=== PATIENT | male | born 1985 | race Two or more races ===

== ENCOUNTER 2021-10-19 13:38 | Observation (INO) ==
[2021-10-19 14:56] LABS: Basophils # (auto) 0.05 K/uL (0-0.2); Basophils % (auto) 0.7 %; Eosinophils # (auto) 0.29 K/uL (0-0.50); Eosinophils % (auto) 4.2 %; Hematocrit (blood only) 41.9 % (40.1-51.0); Hemoglobin 14.6 g/dl (14.0-18.0); Immature Granulocytes # (auto) 0.03 K/uL (0.00-0.02); Immature Granulocytes % (auto) 0.4 %; Lymphocytes # (auto) 1.67 K/uL (1.2-3.4); Mean Corpuscular Hemoglobin 30.3 pg (25.0-34.0); Mean Corpuscular Hgb Conc 34.8 g/dL (32.0-36.0); Mean Corpuscular Volume 86.9 fL (80.0-100.0); Mean Platelet Volume 10.9 fL (9.4-12.4); Monocytes # (auto) 0.66 K/uL (0.24-0.82); Monocytes % (auto) 9.5 %; Neutrophils # (auto) 4.25 K/uL (1.4-6.5); Neutrophils % (auto) 61.2 %; Platelet Count 281 K/uL (130-400); RDW Coefficient of Variation 12.7 % (11.5-14.5); RDW Standard Deviation 40.4 fL (36.4-46.3); Red Blood Count 4.82 M/uL (4.63-6.08); White Blood Count 6.95 K/ul (4.8-10.8)
[2021-10-19 15:15] LABS: Albumin Globulin Ratio 1.5 (0.9-2); Albumin Level 4.8 gm/dl (3.4-5.0); BUN Creatinine Ratio 10.6 (10-20); Bilirubin,Total 0.4 mg/dl (0.2-1.0); Calcium 10.1 mg/dl (8.5-10.1); Creatinine Clr Calc Pharmacy 134.4 ml/min; Est GFR (African American) 131.8 ml/min; Est GFR (Non-African American) 113.7 ml/min; Globulin 3.2 gm/dl (2.5-4.0); Potassium 3.9 mmol/L (3.5-5.1)
[2021-10-19] MEDS ORDERED: diphenhydrAMINE 50 MG/ML VIAL IV STA (15:35)
[2021-10-19] MEDS ORDERED: SODIUM CHLORIDE 0.9% 1000ML 1,000 ML IV ONE (15:35)
[2021-10-19] MEDS ORDERED: ACETAMINOPHEN 1,000 MG/100 ML VIAL IV STA (15:35)
[2021-10-19] MEDS ORDERED: ONDANSETRON INJ 2 MG/ML 2 ML VIAL IV STA (15:35)
[2021-10-19] MEDS ORDERED: OPTIRAY 300 100mL IV ONE (16:09)
[2021-10-19 16:52] LABS: Appearance Urine Clear (Clear); Bilirubin Urine Negative (Negative); Blood Urine Negative (Negative); Color Urine Dark Yellow; Glucose Urine UA Negative (Negative); Ketones Urine Negative (Negative); Leukocyte Esterase Urine Negative (Negative); Nitrite Urine Negative (Negative); Protein Urine Negative (Negative); Specific Gravity Urine > 1.045 (1.000-1.030); Urobilinogen Urine Negative (Negative); pH Urine 5.5 (4.5-7.5)
--- NOTE | 2021-10-19 16:57 | CT Scan Report ---
ABDOMEN AND PELVIS CT WITH IV CONTRAST CT DOSE: 398.62 mGy.cm HISTORY: Acute right lower quadrant abdominal pain RLQ pain TECHNIQUE: Multiaxial CT images of the abdomen and pelvis were performed following the IV administrat ion of 93 cc of Optiray, A dose lowering technique was utilized adhering to the principles of ALARA. COMPARISON STUDY: CT abdomen and pelvis 12/03/2019 FINDINGS: Clear lung bases. No pneumatosis or pneumoperitoneum. The imaged inferior cardiac chambers are unremarkable. Unenhanced spleen, pancreas, adrenal glands, liver and gallbladder appear unremarka ble. Kidneys, and ureters are unremarkable. No renal or ureteral calculi or obstructive uropathy. Par tial distention of the urinary bladder with mild wall thickening. Unremarkable prostate. Aorta and IV C are within normal limits. No adenopathy. No bowel obstruction. The base and mid aspect of the appendix is dilated measuring up to 1.1 cm with wall thickening and mucosal hyperemia. Periappendiceal inflammation with trace free fluid. Soft tissu es are unremarkable. Scattered subcentimeter sclerotic foci of the pelvis and proximal femora are sug gestive of probable bone islands. Bones appear intact. IMPRESSION: 1. Acute appendicitis. No pneumoperitoneum or abscess. 2. No bowel obstruction. ACT 112: Negative or not required by law. The above report was generated using voice recognition software. It may contain grammatical, syntax o r spelling errors. Electronically signed by: Sea Fuentes M.D. 10/19/2021 4:56 PM
[2021-10-19] MEDS ORDERED: cefOXitin 2,000 MG/60 ML BAG IV STA (17:01)
--- NOTE | 2021-10-19 17:07 | Emergency Department Note ---
Impression & Plan Acute appendicitis, Acute right lower quadrant pain, Nausea ED Provider Note NAME: ADRYAN LEVINE AGE: 36 SEX: M ARRIVES VIA: Walk-In INFORMANT: Patient ED PROVIDER(S): Anthony Strickland MD CHIEF COMPLAINT: Appendicitis PLAN: Disposition: Admit MEDICAL DECISION MAKING: The patient is a pleasant 36-year-old gentleman with a past medical history of IBS who presents to the emergency department with symptoms of nausea and abdominal pain beginning on with evolution of right lower quadrant abdominal pain over the past 24-48 hours. He reports he does have frequent symptoms related to his IBS but this feels different and that is more severe. He also notes he had a fever on Tuesday. He denies any cough or congestion or diarrhea. He denies any known COVID-19 exposures. On arrival the patient is no acute distress, afebrile stable vital signs. He appears clinically dry. He has mild point tenderness in the right lower quadrant over McBurney's point. There is no guarding or rebound WBC, H/H and platelets within normal limits. Chemistry without metabolic acidosis. Electrolytes and LFTs unremarkable. Lipase within normal limits. UA without convincing evidence of infection. COVID-19 RNA, DANIA test was negative. CT of the abdomen pelvis was performed and demonstrates evidence of acute appendicitis with 1.1 cm dilated appendix with periappendiceal inflammation. Cefoxitin ordered. Case was discussed with general surgery on-call, Dr. Wilde, who evaluate the patient for admission/OR. Triage Nursing notes reviewed and agree them. Prior medical records reviewed Vital Signs: reviewed and remarkable for no significant abnormalities Differential diagnosis: Appendicitis, testicular torsion, infections, diverticulitis, UTI, obstruction, mesenteric ischemia, aortic pathology, inflammatory bowel disease, renal colic, PUD, pancreatitis, biliary pathology, hernia, volvulus, constipation, as well as other pathologies. ER treatment provided: See below. Diagnostics interpreted by me: Cardiac Monitoring: An order for continuous cardiac monitoring was placed and demonstrated NSR, 81 bpm, no ectopy. Laboratory studies: See below Imaging studies: See below Consultation(s): General surgery on-call, Dr. Wilde HPI: The patient is a pleasant 36-year-old gentleman with a past medical history of IBS who presents to the emergency department with symptoms of nausea and abdo sultana pain beginning on with evolution of right lower quadrant abdominal pain over the past 24-48 hours. He reports he does have frequent symptoms related to his IBS but this feels different and that is more severe. He also notes he had a fever on Raghu. He denies any cough or congestion or diarrhea. He denies any known COVID-19 exposures. ROS: See above HPI for pertinent positives & negatives. A total of 10 systems reviewed and were otherwise negative. VITALS:See Below PHYSICAL EXAMINATION: GENERAL: Awake, alert, fatigued-appearing, in no distress HENT: Normocephalic, atraumatic. Oropharynx with dry mucous membranes and otherwise unremarkable. EYES: Normal conjunctiva. Sclera non-icteric. NECK: Supple. No nuchal rigidity. FROM. No JVD. RESPIRATORY: Clear to auscultation. CARDIAC: Regular rate, normal rhythm. Extremities warm and well perfused. Pulses equal. ABDOMEN: Soft, non-distended. Mild RLQ tenderness to palpation. No rebound or guarding. No masses. RECTAL: Deferred. MUSCULOSKELETAL: Chest examination reveals no tenderness. The back is symmetrical on inspection without obvious abnormality. There is no CVA tenderness to palpation. No joint edema. LOWER EXTREMITIES: Calves are equal size bilaterally and non-tender. No edema. No discoloration. NEURO: Normal sensorium. No sensory or motor deficits noted. SKIN: No rash or jaundice noted. Anthony Strickland MD Past Med/Surg History Medical History Abdominal pressure Anxiety Asthma no inhaler use Depression History of concussion multiple sports related concussions in his 20s - reports residual memory issues History of migraine IBS (irritable bowel syndrome) Joint pain BL SHOULDERS PTSD (post-traumatic stress disorder) Smoker Surgical History No history of previous surgery Family History Father Family history of diabetes mellitus Grandmother (Paternal) Family history of diabetes mellitus Other No family history of adverse response to anesthesia Denies family history of Crohn's disease Colorectal cancer Ulcerative colitis Social History Smoking Status: Current every day smoker Second Hand Exposure: No; Do You Dip or Chew Tobacco: No; Tobacco Cessation Education Requested by Patient: No Hx Alcohol Use: Yes Alcohol type: beer Hx Substance Use: No Preferred Language: Hebrew Communication Ability: Effective Visual Impairment: No Limitations Hearing Ability: Normal 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 Required: No Beliefs That Will Affect Care: None marital status: single Current Living Situation: Family Current Living Situation Comment: [facility] W/ [place]NE current occupational status: employed current occupation: [employer] Other Information That Helps Us Care for You: No Feels Safe at Home: Yes Safety Concerns: Feels Safe At This Time Childhood Exposure to Second-Hand Smoke: Yes caffeine: Yes during the past year weight has: remained stable Physical Activity Frequency: Daily Seatbelt Use: always Sunscreen Use: No Assistive Devices: Glasses Allergies Allergies Allergy/AdvReac Type Severity Reaction Status Date / Time No Known Allergies Allergy Verified 01/25/20 09:40 Home Meds Home Medications Medication Instructions Recorded Confirmed sertraline 100 mg tablet (Zoloft) 150 mg PO QAM 01/23/19 01/25/20 bupropion HCl 100 mg tablet,12 hr 100 mg PO QAM 05/30/19 01/25/20 sustained-release (Wellbutrin SR) Previous Rx's Medication Instructions Recorded linaclotide 145 mcg capsule 145 mcg PO DAILY #30 caps 11/16/19 (Linzess) Results & Data (ED) Vital Signs Vital Signs - 24 hr 10/19/21 13:46 10/19/21 15:27 10/19/21 17:14 Temperature 36.3 C L Temperature Source Temporal Artery Scan Pulse Rate 93 H Pulse Rate [Right Finger] 77 78 Pulse Rhythm Regular Pulse Strength Normal Respiratory Rate 20 16 18 Respiratory Effort / Characteristics Non-Labored Spontaneous Respiratory Depth Normal Respiratory Pattern Regular Blood Pressure 137/93 Blood Pressure [Right Arm] 129/93 138/96 Blood Pressure Mean 107 Blood Pressure Mean [Right Arm] 105 110 Blood Pressure Position Sitting Pulse Oximetry 97 98 100 Oxygen Delivery Method Room Air Room Air Sepsis Recent Fever Within 48 Hours No Sepsis New/Unexplained Change in Mental Status No Sepsis Action Taken by Nursing No Action Required 10/19/21 18:21 Temperature 36.6 C Temperature Source Oral Pulse Rate Pulse Rate [Right Finger] 79 Pulse Rhythm Pulse Strength Respiratory Rate 16 Respiratory Effort / Characteristics Respiratory Depth Respiratory Pattern Blood Pressure Blood Pressure [Right Arm] 121/84 Blood Pressure Mean Blood Pressure Mean [Right Arm] 96 Blood Pressure Position Pulse Oximetry 99 Oxygen Delivery Method Room Air Sepsis Recent Fever Within 48 Hours Sepsis New/Unexplained Change in Mental Status Sepsis Action Taken by Nursing Laboratory Data Attestation: I reviewed the patient's lab results. Result diagrams: 10/19/21 14:40 10/19/21 14:40 Lab Results 10/19/21 10/19/21 10/19/21 Range/Units 14:40 14:40 15:38 WBC 6.95 (4.8-10.8) K/ul RBC 4.82 (4.63-6.08) M/uL Hgb 14.6 (14.0-18.0) g/dl Hct 41.9 (40.1-51.0) % MCV 86.9 (80.0-100.0) fL MCH 30.3 (25.0-34.0) pg MCHC 34.8 (32.0-36.0) g/dL RDW Std Deviation 40.4 (36.4-46.3) fL RDW Coeff of Holly 12.7 (11.5-14.5) % Plt Count 281 (130-400) K/uL MPV 10.9 (9.4-12.4) fL Immature Gran % (Auto) 0.4 % Neut % (Auto) 61.2 % Lymph % (Auto) 24.0 % Dewitt % (Auto) 9.5 % Eos % (Auto) 4.2 % Baso % (Auto) 0.7 % Neut # (Auto) 4.25 (1.4-6.5) K/uL Lymph # (Auto) 1.67 (1.2-3.4) K/uL [place] # (Auto) 0.66 (0.24-0.82) K/uL Eos # (Auto) 0.29 (0-0.50) K/uL Baso # (Auto) 0.05 (0-0.2) K/uL Immature Gran # (Auto) 0.03 H (0.00-0.02) K/uL Sodium 137 (136-145) mmol/L Potassium 3.9 (3.5-5.1) mmol/L Chloride 102 (98-107) mmol/L Carbon Dioxide 30 (21-32) mmol/L Anion Gap 5 (3-11) BUN 9 (6-23) mg/dl Creatinine 0.85 (0.6-1.4) mg/dl Est Cr Clr Drug Dosing 134.4 ml/min Est GFR ( Amer) 131.8 ml/min Est GFR (Non-Af Amer) 113.7 ml/min BUN/Creatinine Ratio 10.6 (10-20) Glucose 90 (70-99(Fasting)) mg/dl Calcium 10.1 (8.5-10.1) mg/dl Total Bilirubin 0.4 (0.2-1.0) mg/dl AST 20 (13-39) U/L ALT 38 (7-52) U/L Alkaline Phosphatase 60 (34-104) U/L Total Protein 8.0 (6.0-8.3) gm/dl Albumin 4.8 (3.4-5.0) gm/dl Globulin 3.2 (2.5-4.0) gm/dl Albumin/Globulin Ratio 1.5 (0.9-2) Lipase 24 (11-82) U/L Urine Color Urine Appearance (Clear) Urine pH (4.5-7.5) Ur Specific [place] (1.000-1.030) Urine Protein (Negative) Urine Glucose (UA) (Negative) Urine Ketones (Negative) Urine Blood (Negative) Urine Nitrite (Negative) Urine Bilirubin (Negative) Urine Urobilinogen (Negative) Ur Leukocyte Esterase (Negative) SARS-CoV-2, RNA, NAAT NEGATIVE (NEGATIVE) 10/19/21 Range/Units 16:27 WBC (4.8-10.8) K/ul RBC (4.63-6.08) M/uL Hgb (14.0-18.0) g/dl Hct (40.1-51.0) % MCV (80.0-100.0) fL MCH (25.0-34.0) pg MCHC (32.0-36.0) g/dL RDW Std Deviation (36.4-46.3) fL RDW Coeff of Holly (11.5-14.5) % Plt Count (130-400) K/uL MPV (9.4-12.4) fL Immature Gran % (Auto) % Neut % (Auto) % Lymph % (Auto) % [place] % (Auto) % Eos % (Auto) % Baso % (Auto) % Neut # (Auto) (1.4-6.5) K/uL Lymph # (Auto) (1.2-3.4) K/uL [place] # (Auto) (0.24-0.82) K/uL Eos # (Auto) (0-0.50) K/uL Baso # (Auto) (0-0.2) K/uL Immature Gran # (Auto) (0.00-0.02) K/uL Sodium (136-145) mmol/L Potassium (3.5-5.1) mmol/L Chloride (98-107) mmol/L Carbon Dioxide (21-32) mmol/L Anion Gap (3-11) BUN (6-23) mg/dl Creatinine (0.6-1.4) mg/dl Est Cr Clr Drug Dosing ml/min Est GFR ( Amer) ml/min Est GFR (Non-Af Amer) ml/min BUN/Creatinine Ratio (10-20) Glucose (70-99(Fasting)) mg/dl Calcium (8.5-10.1) mg/dl Total Bilirubin (0.2-1.0) mg/dl AST (13-39) U/L ALT (7-52) U/L Alkaline Phosphatase (34-104) U/L Total Protein (6.0-8.3) gm/dl Albumin (3.4-5.0) gm/dl Globulin (2.5-4.0) gm/dl Albumin/Globulin Ratio (0.9-2) Lipase (11-82) U/L Urine Color Dark Yellow Urine Appearance Clear (Clear) Urine pH 5.5 (4.5-7.5) Ur Specific [place] > 1.045 H (1.000-1.030) Urine Protein Negative (Negative) Urine Glucose (UA) Negative (Negative) Urine Ketones Negative (Negative) Urine Blood Negative (Negative) Urine Nitrite Negative (Negative) Urine Bilirubin Negative (Negative) Urine Urobilinogen Negative (Negative) Ur Leukocyte Esterase Negative (Negative) SARS-CoV-2, RNA, NAAT (NEGATIVE) Administered Medications Hydromorphone HCl (Hydromorphone Inj 0.5 Mg/0.5 Ml Syr) 0.5 mg IV Q6H PRN PRN Reason: Pain Stop: 11/02/21 20:38 Last Admin: 10/19/21 21:42 Dose: 0.5 mg Documented By: Lactated Ringer's (Lr) 1,000 mls @ 80 mls/hr IV .[id number] ISI Stop: 11/18/21 20:38 Last Admin: 10/19/21 20:59 Dose: 80 mls/hr Documented By: Discontinued Medications Bacitracin (Bacitracin Oint 15 Gm Tube) Confirm Administered Dose 45 appln .ROUTE .STK-MED ONE Stop: 10/19/21 17:53 Last Admin: 10/19/21 19:21 Dose: 45 appln Documented By: NBA Bupivacaine HCl (Bupivacaine 0.5 % 5 Mg/1 Ml Mpf 30ml Vial) Confirm Administered Dose 30 ml .ROUTE .STK-MED ONE Stop: 10/19/21 17:53 Last Admin: 10/19/21 19:22 Dose: 6 ml Documented By: NBA Diphenhydramine HCl (Diphenhydramine 50 Mg/Ml Vial) 25 mg IV NOW STA Stop: 10/19/21 15:36 Last Admin: 10/19/21 15:47 Dose: Not Given Documented By: JENNIFER Fentanyl Citrate (Fentanyl Citrate 100 Mcg/2 Ml Vial) 25 mcg IV Q5M PRN PRN Reason: PACU Use Only-Pain Stop: 10/20/21 02:34 Last Admin: 10/19/21 20:04 Dose: 25 mcg Documented By: Admin: 10/19/21 19:59 Dose: 25 mcg Documented By: Admin: 10/19/21 19:54 Dose: 25 mcg Documented By: Admin: 10/19/21 19:49 Dose: 25 mcg Documented By: YADIEL Fentanyl Citrate (Fentanyl Citrate 100 Mcg/2 Ml Vial) Confirm Administered Dose 100 mcg .ROUTE .STK-MED ONE Stop: 10/19/21 19:48 Last Admin: 10/19/21 20:52 Dose: Not Given Documented By: Sodium Chloride (Nss 1000ml) 1,000 mls @ 999 mls/hr IV .Q1H1M ONE Stop: 10/19/21 16:35 Last Infusion: 10/19/21 16:44 Dose: 0 mls/hr Documented By: Admin: 10/19/21 15:43 Dose: 999 mls/hr Documented By: JENNIFER Acetaminophen (Ofirmev) 1,000 mg in 100 mls @ 400 mls/hr IV NOW STA Stop: 10/19/21 15:49 Last Infusion: 10/19/21 15:58 Dose: 0 mls/hr Documented By: Admin: 10/19/21 15:41 Dose: 400 mls/hr Documented By: JENNIFER Cefoxitin Sodium (Mefoxin) 2,000 mg in 60 mls @ 100 mls/hr IV NOW STA Stop: 10/19/21 17:36 Last Infusion: 10/19/21 17:47 Dose: 0 mls/hr Documented By: Admin: 10/19/21 17:11 Dose: 100 mls/hr Documented By: JENNIFER Piperacillin Sod/Tazobactam (Sod 3.375 gm/ Dextrose) 115 mls @ 230 mls/hr IV NOW ONE; Protocol Stop: 10/19/21 21:29 Last Infusion: 10/19/21 22:36 Dose: 0 mls/hr Documented By: Admin: 10/19/21 21:59 Dose: 230 mls/hr Documented By: AB Ioversol (Optiray 300 100ml) 93 ml IV ONCE ONE Stop: 10/19/21 16:10 Last Admin: 10/19/21 16:10 Dose: 93 ml Documented By: RK Lidocaine HCl (Lidocaine 1% Local 20 Ml Vial) Confirm Administered Dose 20 ml .ROUTE .STK-MED ONE Stop: 10/19/21 17:53 Last Admin: 10/19/21 19:22 Dose: 6 ml Documented By: NBA Ondansetron HCl (Ondansetron Inj 2 Mg/Ml 2 Ml Vial) 4 mg IV NOW STA Stop: 10/19/21 15:36 Last Admin: 10/19/21 15:45 Dose: 4 mg Documented By: JENNIFER Imaging Data Radiologist's Impression: Abdomen/Pelvis CT 10/19/21 15:[address] WITH IV CONTRAST CT DOSE: 398.62 mGy.cm HISTORY: Acute right lower quadrant abdominal pain RLQ pain TECHNIQUE: Multiaxial CT images of the abdomen and pelvis were performed following the IV administration of 93 cc of Optiray, A dose lowering technique was utilized adhering to the principles of ALARA. COMPARISON STUDY: CT abdomen and pelvis 12/03/2019 FINDINGS: Clear lung bases. No pneumatosis or pneumoperitoneum. The imaged inferior cardiac chambers are unremarkable. Unenhanced spleen, pancreas, adrenal glands, liver and gallbladder appear unremarkable. Kidneys, and ureters are unr emarkable. No renal or ureteral calculi or obstructive uropathy. Partial distention of the urinary bladder with mild wall thickening. Unremarkable prostate. Aorta and IVC are within normal limits. No adenopathy. No bowel obstruction. The base and mid aspect of the appendix is dilated measuring up to 1.1 cm with wall thickening and mucosal hyperemia. Periappendiceal inflammation with trace free fluid. Soft tissues are unremarkable. Scattered subcentimeter sclerotic foci of the pelvis and proximal femora are suggestive of probable bone islands. Bones appear intact. IMPRESSION: 1. Acute appendicitis. No pneumoperitoneum or abscess. 2. No bowel obstruction. ACT 112: Negative or not required by law. The above report was generated using voice recognition software. It may contain grammatical, syntax or spelling errors. Electronically signed by: Sea Fuentes M.D. 10/19/2021 4:56 PM Discharge Plan Visit Data Chief Complaint: Abdominal Pain Stated Complaint: ABDOMINAL PAIN ED Provider: Anthony Strickland Discharge Problem: Acute appendicitis, Acute right lower quadrant pain, Nausea Patient Disposition: Admitted As Inpatient Discharge Instructions Interventions: ED Discharge Assessment Last Done: 10/19/21 18:13
--- NOTE | 2021-10-19 17:45 | Surgery Consultation ---
Date of Consultation October 19, 2021 Assessment & Plan (1) Acute appendicitis: pt is a 36 year-old mal;e who presents to Er with 48 hours history RLQ pain, IMP: acute appendicitis, plan, I recommend to do laparoscopic appendectomy, possible open, D/W benefits, risks and alternatives of the surgery, the risks - infection, bleeding, abscess, injury other organs, incisional hernia, pt understood, he agrees with the surgery, he signed informed consent, I answered all questions, pre-op iv antibiotic, History of Present Illness Reason for Consultation: acute appendicitis Requesting Physician: Cristy Darling History of Present Illness CC: RLQ pain HPI: pt is a 36 year-old male who presents to ER with 48 hours history RLQ pain, with nausea and no vomiting, the pain is located at RLQ, the pain is 7/10, no radiate to back, pt had fever last Tuesday, pt denies diarrhea, no cough, pt had CT scan at ER diagnosis acute appendicitis, I got a call for consult acute appendicitis, I reviewed pt's H/P, labs and CT scan with pt, Allergies Allergy/AdvReac Type Severity Reaction Status Date / Time No Known Allergies Allergy Verified 01/25/20 09:40 Home Medications Medication Instructions Recorded Confirmed Type sertraline 100 mg tablet (Zoloft) 150 mg PO QAM 01/23/19 01/25/20 History bupropion HCl 100 mg tablet,12 hr 100 mg PO QAM 05/30/19 01/25/20 History sustained-release (Wellbutrin SR) linaclotide 145 mcg capsule 145 mcg PO DAILY #30 caps 11/16/19 01/25/20 Rx (Linzess) Patient History Medical History (Updated 10/19/21 @ 17:47 by Rachael Wilde MD) Abdominal pressure Anxiety Asthma no inhaler use Depression History of concussion multiple sports related concussions in his 20s - reports residual memory issues History of migraine IBS (irritable bowel syndrome) Joint pain BL SHOULDERS PTSD (post-traumatic stress disorder) Surgical History No history of previous surgery Family History Father Family history of diabetes mellitus Grandmother (Paternal) Family history of diabetes mellitus Other No family history of adverse response to anesthesia Denies family history of Crohn's disease Colorectal cancer Ulcerative colitis Social History Smoking Status: Never smoker Second Hand Exposure: No; Hx Alcohol Use: No Hx Substance Use: No Preferred Language: Slovenian Communication Ability: Effective Visual Impairment: No Limitations Hearing Ability: Normal Center Director Lead Teacher Required: No Beliefs That Will Affect Care: None marital status: single Current Living Situation: Significant Other Current Living Situation Comment: LIVES W/ [place] current occupational status: employed current occupation: [employer] Feels Safe at Home: Yes Childhood Exposure to Second-Hand Smoke: Yes caffeine: Yes during the past year weight has: remained stable Physical Activity Frequency: Daily Seatbelt Use: always Sunscreen Use: No Assistive Devices: Glasses Review of Systems Constitutional: as per Subjective / HPI Eyes: as per Subjective / HPI Respiratory: as per Subjective / HPI Cardiovascular: as per Subjective / HPI Gastrointestinal: IBS, constipation Genitourinary: + as per Subjective / HPI Musculoskeletal: as per Subjective / HPI Neurologic: as per Subjective / HPI Psychiatric: as per Subjective / HPI Endocrine: as per Subjective / HPI Hematologic / Lymphatic: as per Subjective / HPI Physical Exam Constitutional: WD/WN, vitals as above Eyes: PERRL, conjunctivae normal, anicteric sclerae Neck: trachea midline, no thyromegaly Respiratory: normal respiratory effort, lungs clear to auscultation Cardiovascular: RRR, no murmur, no edema Gastrointestinal (Abdomen): soft, tenderness at RLQ, no rebound pain, no distend, BS +, Musculoskeletal: no cyanosis or clubbing, extremities motor strength 5/5 Neurologic: patellar DTR's 2+ bilat, sensation intact Psychiatric: A+Ox3, euthymic affect Results & Data ([facility]) Vital Signs (Past 12 Hours) Vital Signs Temp Pulse Pulse Resp BP BP Pulse Ox 10/19/21 17:14 78 18 138/96 100 10/19/21 15:27 77 16 129/93 98 10/19/21 13:46 36.3 C L 93 H 20 137/93 97 O2 Del Method 10/19/21 17:14 Room Air 10/19/21 15:27 10/19/21 13:46 Room Air Laboratory Results Abnormal lab results 10/19/21 10/19/21 Range/Units 14:40 16:27 Immature Gran # (Auto) 0.03 H (0.00-0.02) K/uL Ur Specific [place] > 1.045 H (1.000-1.030) Diagnostic Findings ABDOMEN AND PELVIS CT WITH IV CONTRAST CT DOSE: 398.62 mGy.cm HISTORY: Acute right lower quadrant abdominal pain RLQ pain TECHNIQUE: Multiaxial CT images of the abdomen and pelvis were performed following the IV administration of 93 cc of Optiray, A dose lowering technique was utilized adhering to the principles of ALARA. COMPARISON STUDY: CT abdomen and pelvis 12/03/2019 FINDINGS: Clear lung bases. No pneumatosis or pneumoperitoneum. The imaged inferior cardiac chambers are unremarkable. Unenhanced spleen, pancreas, adrenal glands, liver and gallbladder appear unremarkable. Kidneys, and ureters are unremarkable. No renal or ureteral calculi or obstructive uropathy. Partial distention of the urinary bladder with mild wall thickening. Unremarkable prostate. Aorta and IVC are within normal limits. No adenopathy. No bowel obstruction. The base and mid aspect of the appendix is dilated measuring up to 1.1 cm with wall thickening and mucosal hyperemia. Periappendiceal inflammation with trace free fluid. Soft tissues are unrema rkable. Scattered subcentimeter sclerotic foci of the pelvis and proximal femora are suggestive of probable bone islands. Bones appear intact. IMPRESSION: 1. Acute appendicitis. No pneumoperitoneum or abscess. 2. No bowel obstruction.
--- NOTE | 2021-10-19 17:50 | History & Physical Bridge Note ---
Date of Service October 19, 2021 History & Physical Bridge Note I have examined the patient, reviewed the History & Physical and in the interval since the performance of the History & Physical I have noted the following changes of clinical significance: no changes noted
[2021-10-19] MEDS ORDERED: LIDOCAINE 1% LOCAL 20 ML VIAL ONE (17:52)
[2021-10-19] MEDS ORDERED: BUPIVACAINE 0.5 % 5 MG/1 ML MPF 30ML VIAL ONE (17:52)
[2021-10-19] MEDS ORDERED: BACITRACIN OINT 15 GM TUBE ONE (17:52)
[2021-10-19] MEDS ORDERED: fentaNYL citrate 100 MCG/2 ML VIAL ONE ×3 (18:28→19:47)
[2021-10-19] MEDS ORDERED: LIDOCAINE 2% MPF LOCAL 5 ML VIAL INFIL ONE (18:28)
[2021-10-19] MEDS ORDERED: MIDAZOLAM HCL 1 MG/ML 2ML VIAL ONE (18:28)
[2021-10-19] MEDS ORDERED: PROPOFOL IV EMULSION 10 MG/ML 20 ML VIAL IV ONE (18:29)
[2021-10-19] MEDS ORDERED: DEXAMETHASONE SOD INJ 4 MG/ML VIAL ONE (18:29)
[2021-10-19] MEDS ORDERED: ONDANSETRON INJ 2 MG/ML 2 ML VIAL ONE (18:29)
[2021-10-19] MEDS ORDERED: ROCURONIUM BROMIDE 10 MG/ML 5 ML VIAL IV ONE ×2 (18:29→18:51)
--- NOTE | 2021-10-19 18:32 | Anesthesiology Consultation ---
Date of Service October 19, 2021 Assessment & Plan (1) Encounter for pre-operative examination: Chart Review Chart Review: Acceptable Risk for Surgery and Patient NOT seen in Pre Admission Testing Consults Requested none History Surgery Operation Date: 10/19/21 18:30 Proposed Procedures p Laparoscopic Appendectomy(Not Applicable) - Rachael Wilde MD Height/Weight Height: 6 ft Weight: 92.8 kg Allergies Allergy/AdvReac Type Severity Reaction Status Date / Time No Known Allergies Allergy Verified 01/25/20 09:40 Medications Home Medications Medication Instructions Recorded Confirmed Last Taken sertraline 100 mg tablet (Zoloft) 150 mg PO QAM 01/23/19 01/25/20 07/31/19 bupropion HCl 100 mg tablet,12 hr 100 mg PO QAM 05/30/19 01/25/20 07/31/19 sustained-release (Wellbutrin SR) linaclotide 145 mcg capsule 145 mcg PO DAILY #30 caps 11/16/19 01/25/20 Unknown (Linzess) NPO Date Last Intake of Fluids: 10/19/21 Time Last Intake of Fluids: 11:00 Date Last Intake of Solids: 10/18/21 Time Last Intake of Solids: 20:00 Past Medical History Medical History Abdominal pressure Anxiety Asthma no inhaler use Depression History of concussion multiple sports related concussions in his 20s - reports residual memory issues History of migraine IBS (irritable bowel syndrome) Joint pain BL SHOULDERS PTSD (post-traumatic stress disorder) Smoker Past Family History Family History Father Family history of diabetes mellitus Grandmother (Paternal) Family history of diabetes mellitus Other No family history of adverse response to anesthesia Denies family history of Crohn's disease Colorectal cancer Ulcerative colitis Past Surgical History Surgical History No history of previous surgery Social History Smoking Status: Never smoker tobacco type: cigarettes Hx Alcohol Use: No alcohol intake frequency: holidays/special occasions only Hx Substance Use: No substance use type: does not use Physical Exam Vital Signs Last Vital Signs Temp 36.6 C 10/19/21 18:21 Pulse 79 10/19/21 18:21 Resp 16 10/19/21 18:21 BP 121/84 10/19/21 18:21 Pulse Ox 99 10/19/21 18:21 O2 Del Method 10/19/21 18:21 Testing Laboratory Results 10/19/21 14:40 10/19/21 14:40 Urine Color Dark Yellow 10/19/21 16:27 Urine Appearance Clear (Clear) 10/19/21 16:27 Urine pH 5.5 (4.5-7.5) 10/19/21 16:27 Ur Specific Powell > 1.045 (1.000-1.030) H 10/19/21 16:27 Urine Protein Negative (Negative) 10/19/21 16:27 Urine Glucose (UA) Negative (Negative) 10/19/21 16:27 Urine Ketones Negative (Negative) 10/19/21 16:27 Urine Nitrite Negative (Negative) 10/19/21 16:27 Ur Leukocyte Esterase Negative (Negative) 10/19/21 16:27
[2021-10-19] MEDS ORDERED: MEPERIDINE HCL 25 MG/ML CARP/VIAL IV PRN (18:34)
[2021-10-19] MEDS ORDERED: ePHEDrine sulfate 50 MG/ML AMP IV PRN (18:34)
[2021-10-19] MEDS ORDERED: ATROPINE SULFATE 0.1 MG/ML 10ML SYR IV PRN (18:34)
[2021-10-19] MEDS ORDERED: ONDANSETRON INJ 2 MG/ML 2 ML VIAL IV PRN (18:34)
[2021-10-19] MEDS ORDERED: HYDROmorphone INJ 1 MG/ML SYRINGE IV PRN (18:34)
[2021-10-19] MEDS ORDERED: LABETALOL HCL IV 5 MG/ML 20ML IV PRN (18:34)
[2021-10-19] MEDS ORDERED: PHENYLEPHRINE 100MCG/ML 5ML SYR IV PRN (18:34)
[2021-10-19] MEDS ORDERED: NEOSTIGMINE METHYLSULFATE 1 MG/ML 10ML VIAL ONE (18:49)
[2021-10-19] MEDS ORDERED: GLYCOPYRROLATE 0.2 MG/ML VIAL ONE (18:49)
[2021-10-19] MEDS ORDERED: KETOROLAC 30 MG/ML VIAL ONE (19:21)
--- NOTE | 2021-10-19 19:27 | Post Operative Brief Note ---
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
[2021-10-19] MEDS: fentaNYL citrate 100 MCG/2 ML VIAL IV PRN ×4 (19:49→20:04)
--- NOTE | 2021-10-19 20:15 | Anesthesiology Progress Note ---
Date of Service October 19, 2021 Anesthesia Post Procedure Vital Signs Vital Signs: Temp Pulse Pulse Resp BP BP Pulse Ox 10/19/21 20:00 68 16 137/95 100 10/19/21 19:50 65 16 125/88 100 10/19/21 19:41 36.3 C L 65 16 141/85 H 100 10/19/21 18:21 36.6 C 79 16 121/84 99 10/19/21 17:14 78 18 138/96 100 10/19/21 15:27 77 16 129/93 98 10/19/21 13:46 36.3 C L 93 H 20 137/93 97 O2 Del Method O2 Flow Rate 10/19/21 20:00 Oxymask 5 10/19/21 19:50 Oxymask 5 10/19/21 19:41 Oxymask 5 10/19/21 18:21 Room Air 10/19/21 17:14 Room Air 10/19/21 15:27 10/19/21 13:46 Room Air Transfer of Care Handoff Completed per policy Notes Mental Status: alert / awake / arousable Patient Amnestic to Procedure: Yes Nausea / Vomiting: adequately controlled Pain: adequately controlled Airway Patency, RR, SpO2: stable & adequate BP & HR: stable & adequate Hydration State: stable & adequate Anesthetic Complications: no major complications apparent and Pt Satisfied with anesthetic care
[2021-10-19] MEDS ORDERED: HYDROmorphone INJ 0.5 MG/0.5 ML SYR IV PRN (20:39)
[2021-10-19] MEDS ORDERED: oxyCODONE/ACETAMINOPHEN 5mg/325mg TAB PO PRN (20:39)
[2021-10-19] MEDS: LACTATED RINGER'S 1,000 ML IV SCH (20:59)
[2021-10-19] MEDS ORDERED: PIPERACILLIN/TAZOBACTAM 3.375 GM in DEXTROSE 5% 100 ML IV ONE (21:00)
[2021-10-20] MEDS: PIPERACILLIN/TAZOBACTAM 3.375 GM in DEXTROSE 5% 100 ML IV SCH ×2 (01:39→10:12)
--- NOTE | 2021-10-20 03:08 | Operative Report (OR) ---
DATE OF PROCEDURE: 10/19/2021. PREOPERATIVE DIAGNOSIS: Acute appendicitis. POSTOPERATIVE DIAGNOSIS: Acute appendicitis. OPERATION: Laparoscopic appendectomy. SURGEON: Rachael Wilde MD. ANESTHESIA: General. ESTIMATED BLOOD LOSS: About 10 mL. FINDINGS: Acute appendicitis. COMPLICATIONS: None. INDICATIONS FOR THE PROCEDURE: This is a 36-year-old gentleman, who presented to the ED with a coupl e-day history of right lower quadrant pain. The patient had the CT scan diagnosis of acute appendici tis. I recommended to do laparoscopic appendectomy, possible open. I did talk to the patient about the benefit, risk, alternate procedure. I indicated the risks may include, but not limited to, such as bleeding, infection, abscess, injury to bowel, injury to other organs, incisional hernia. The pat ient understands. He signed informed consent and I answered all questions. DETAILS OF PROCEDURE: After we identified the patient and verified the procedure, we brought the pat ient to the OR, put the patient in the supine position on the OR table. The patient received SCD on bilateral legs to prevent DVT. Also, patient received 2 grams of cefoxitin IV for prophylactic antib iotic. The patient received general anesthesia without difficulty. The abdomen was prepped and drap ed in routine sterile fashion. After timeout, I injected the local anesthesia by using 1% lidocaine mixed with 0.5% Marcaine just above the umbilicus, then I made a small incision just above umbilicus, opened fascia, opened peritoneum. Under direct vision, put a Jalil trocar in, connected to CO2 to create pneumoperitoneum, flow rate at 6 liters per minute, pressure not more than 14 mmHg. Once we got a nice pneumoperitoneum, we put a camera in, looked around the abdomen, showed there were some omental adhesions to the right lower quadrant area. At this moment, we put another two 5-mm tr ocars on the left lower quadrant area. Then, we mobilized the cecum and then we found the patient rhodes d acute appendicitis with appendix inflammation and enlarged. Once we confirmed acute appendicitis, we used the Harmonic to take down the appendiceal, rechecked, no active bleeding. We used Endo-LEFTY s tapler, 45 mm for transection on the base of appendix, rechecked the staple line, intact, no leak, no active bleeding. Then, we removed appendix through the catch bag. Then, we reinserted the Jalil trocar in, connected to CO2 to create pneumoperitoneum, again looked a round the abdomen. No free flow found on the pelvic area. Staple line intact and no leak, no active bleeding. At this moment, we removed all trocars under direct vision. No active bleeding from the t rocar site. Pneumoperitoneum was released, then I closed the umbilical incision fascial layer by usi ng 2-0 Vicryl [id number] x2, closed subcutaneous layer by using 2-0 Vicryl interruptedly, closed skin by using 4-0 Vicryl continuous running, closed another two 5-mm trocar site skin only by using 4-0 Vicryl. Then, we put the dressing on. The patient tolerated the procedure well. All instrument , needle and sponge counts were correct x2 at the end of the case. The patient was transferred to re covery room in stable condition. The specimen was sent to pathology. After the procedure, I did eyad k to the patient about the OR finding and the procedure we did, the patient understands. Job ID: [id number]
[2021-10-20] MEDS: LACTATED RINGER'S 1,000 ML IV SCH (07:58)
[2021-10-20 08:07] LABS: Albumin Globulin Ratio 1.4 (0.9-2); Albumin Level 3.9 gm/dl (3.4-5.0); Bilirubin,Total 0.6 mg/dl (0.2-1.0); Calcium 9.4 mg/dl (8.5-10.1); Creatinine Clr Calc Pharmacy 149.6 ml/min; Est GFR (African American) 133.1 ml/min; Est GFR (Non-African American) 114.8 ml/min; Globulin 2.8 gm/dl (2.5-4.0); Potassium 3.9 mmol/L (3.5-5.1); Total Protein 6.7 gm/dl (6.0-8.3)
[2021-10-20] MEDS ORDERED: LINACLOTIDE 145 MCG CAPSULE PO SCH (09:00)
[2021-10-20] MEDS ORDERED: SERTRALINE HCL 50 MG TABLET PO SCH (09:00)
[2021-10-20] MEDS ORDERED: buPROPion SR 100 MG TABCR PO SCH (09:00)
[2021-10-20] MEDS ORDERED: ACETAMINOPHEN 325 MG TAB PO PRN (09:41)
[2021-10-20] MEDS ORDERED: IBUPROFEN 600 MG TAB PO PRN (09:41)
--- NOTE | 2021-10-20 11:34 | Discharge Summary ---
Date of Service October 20, 2021 Admission HPI Per Admitting Provider HPI: pt is a 36 year-old male who presents to ER with 48 hours history RLQ pain, with nausea and no vomiting, the pain is located at RLQ, the pain is 7/10, no radiate to back, pt had fever last Tuesday, pt denies diarrhea, no cough, pt had CT scan at ER diagnosis acute appendicitis, I got a call for consult acute appendicitis, I reviewed pt's H/P, labs and CT scan with pt, Principal Diagnosis Acute appendicitis Discharge Exam Constitutional WD/WN, vitals as above no acute distress and not ill appearing Neck normal visual inspection and trachea midline Respiratory normal respiratory effort; no respiratory distress, no labored breathing and no retractions Auscultation: lungs clear to auscultation bilaterally Cardiovascular Rate/Rhythm: regular rate and regular rhythm Gastrointestinal (Abdomen) Inspection/Auscultation: abdomen normal to inspection and + abdominal surgical incision (covered with clean dry dressings); abdomen not distended and + abnormal bowel sounds Percussion/Palpation: + abdomen tender (at incision sites, appropriate postop) and abdomen soft; no guarding and abdomen not rigid Skin no rashes, warm and dry Psychiatric Orientation: alert and oriented x 3 Discharge Data Allergies Allergy/AdvReac Type Severity Reaction Status Date / Time No Known Allergies Allergy Verified 01/25/20 09:40 Consultations 10/19/21 17:04 ED Decision to Admit Stat Procedures Performed Operation Date: 10/19/21 18:30 Actual Procedures p Laparoscopic Appendectomy(Not Applicable) - Rachael Wilde MD Ordered Studies 10/19/21 15:35 CT abd pelvis IV con only Stat Hospital Course (1) Acute appendicitis: Patient was taken to operating room for laparoscopic appendectomy by Dr. Wilde on 10/20/2021 from the emergency department. Patient found to have acute appendicitis without perforation or abscess. Patient tolerated procedure well without difficulty and transferred to recovery room then to medical/surgical floor for postop care. Diet advanced to clear liquids, IV Zosyn for antibiotics continued, PO Percocet with IV Dilaudid as needed for pain. POD # 1 avss, postop pain at incisions 6/10, Percocet controlling pain, tolerated clear liquids, no n,v. Diet advanced to regular diet, encouraged to ambulate, and PO Tylenol and Ibuprofen added for pain management. Patient was discharged home on POD # 1 in afternoon in stable condition. Total Time Total Time Spent Total Time Spent (In Minutes): 30 minutes Total Time Includes: Examination of the Patient, Discharge Planning and Medication Reconciliation Discharge Plan Discharge Items Patient Disposition: Home - Self-Care Reason For Visit: ACUTE ABDOMINAL PAIN Discharge Diagnosis: Acute appendicitis Activity: Per Instructions section Non-emergency contact: Primary Care Provider and Surgeon Call non-emergency contact if: you have any medication questions, your pain is worsening, your pain is concerning for you, you have a fever, your temperature is above 101, your wound has increased redness, your wound has increased drain age and your wound pain has increased Follow-up/Referrals: Olivia Palacios DO [Primary Care Provider] - Danika Benjamin PA-C [Physician Express Manager] - (follow up 1-2 weeks after surgery) Diet: Regular Addtl Attending Provider Instructions: Post-Surgical ~Discharge Instructions Activity Recommendations: - lifting limitation: (20 pounds for 3-4 weeks), - exercise/sex/sports limit: (nonstrenuous for 2 weeks), - driving or machine use limit: (none for 1 week or until pain free and no longer taking narcotic pain medication), - Shower/bathe limit: (may shower beginning ) Diet: - Resume previous diet SPECIAL CARE INSTRUCTIONS: - May shower on . Sponge bath and wash hair in meantime. On , remove outer dressings and let water run over area and pat dry. - Leave steri strips on for one week and then remove. They may fall off on their own that is okay. - Call the surgeon's office with any questions or concerns - - (ex. temperature higher than 101 degrees F, excessive bleeding or pain). MEDICATIONS: - Resume previous medications unless instructed otherwise by your surgeon. - May alternate extra strength Tylenol and Ibuprofen as needed for mild to moderate pain -650 mg Tylenol every 6 hours as needed - Ibuprofen 600 mg every 6 hours as needed (take with food) - Percocet 1 every 4 hours, as needed for moderate to severe pain - Recommend daily stool (Colace) softener while taking narcotic pain medication to prevent constipation or straining FOLLOW UP VISIT: - If not already scheduled, please call the office to schedule a two week follow-up appointment. Office number Pending Studies at Discharge: Yes (pathology report, will be reviewed at follow- up visit) Stand-Alone Forms: My [facility], Work/School Release, Smoking Cessation Medications and DC Order Prescriptions: New oxycodone-acetaminophen 5-325 mg tablet 1 tab PO Q6H PRN (Reason: pain) Qty: 10 0RF Continued bupropion HCl [Wellbutrin SR] 100 mg tablet sustained-release 12 hr 100 mg PO QAM Linzess 145 mcg capsule 145 mcg PO DAILY Qty: 30 2RF sertraline [Zoloft] 100 mg tablet 150 mg PO QAM Discharge Orders: Discharge Order (Routine); Ordered 10/20/21 Ordered By: Danika Benjamin Admission Data Admit Date/Time: 10/19/21 19:31 Attending Provider: Rachael Wilde Admit Provider: Rachael Wilde Primary Care Provider: Olivia Palacios Other Providers: Rachael Wilde
== END 2021-10-20 18:25 | disposition home or self-care (01) ==
LOC: ED 13:38 → OR 18:10 → 3W 18:10